=== PATIENT | female | born 1945 | race Caucasian/White ===

== ENCOUNTER → 2017-06-12 | Outpatient (CLI) | payer OTHER, MEDICARE | END | disposition home or self-care (01) | LOC: C.RDSM 08:28 | PROVIDERS: ATTEND Physical Medicine & Rehabilitation Sports Medicine | DX: M17.0 Bilateral primary osteoarthritis of knee (principal) ==

== ENCOUNTER → 2018-05-24 | Outpatient (CLI) | payer OTHER, MEDICARE ==
[~2018-05-24] MED LIST: ASPI81TA28 PO; CAL1CHW4 PO; CLR10 PO; DIPH25CA65 PO; LISI-461 PO; METH500T3 PO; METO25TA4 PO; OXYC-57 PO; PANT40TA PO; SIMV20TA2 PO; VITAMIN D PO; WARF2TAB PO
[2018-05-24 14:47] LABS: INR 1.4 (0.9-1.1)
== END | disposition home or self-care (01) ==
LOC: C.LAB1850 13:02
PROVIDERS: ATTEND Orthopaedic Surgery
DX: Z79.01 Long term (current) use of anticoagulants (principal); Z96.659 Presence of unspecified artificial knee joint